=== PATIENT | female | born 1990 | race Hispanic/Latino ===

== ENCOUNTER 2016-12-09 18:32 | Emergency (ER) | payer SELFPAY ==
[2016-12-09 18:32] VITALS: BMI 29.8
[2016-12-09 19:31] VITALS: BP 119/77; PULSE 83; RESP 16; TEMP 98; O2SAT 98
--- NOTE | 2016-12-09 19:52 | C.PDOC ---
History Of Present Illness 26 y/o female presents to ED for evaluation of thumb laceration sustained at home with slicer [employer]. Patient denies deformity, sensory or vascular deficits, weakness, numbness or any other complaints at this time. Tetanus vaccines UTD Time Seen by Provider: 12/09/16 19:34 Chief Complaint (Nursing): Abnormal Skin Integrity History Per: Patient History/Exam Limitations: no limitations Onset/Duration Of Symptoms: Hrs Current Symptoms Are (Timing): Still Present Quality Of Symptoms: Painful Past Medical History Reviewed: Historical Data, Nursing Documentation, Vital Signs Vital Signs: Last Vital Signs Temp 98 F 12/09/16 19:29 Pulse 83 12/09/16 19:29 Resp 16 12/09/16 19:29 BP 119/77 12/09/16 19:29 Pulse Ox 98 12/09/16 20:05 Surgical History: Cholecystectomy - [facility] Procedures EXTRACTION OF POC, LOW CERVICAL, OPEN APPROACH (09/18/15) Family History: States: No Known Family Hx - Social History Hx Tobacco Use: No Hx Alcohol Use: No Hx Substance Use: No - Immunization History Hx Tetanus Toxoid Vaccination: Yes Hx Influenza Vaccination: No Hx Pneumococcal Vaccination: No Review Of Systems Except As Marked, All Systems Reviewed And Found Negative. Constitutional: Negative for: Fever, Chills Musculoskeletal: Positive for: Hand Pain Skin: Negative for: Rash Neurological: Negative for: Weakness, Numbness Physical Exam - Physical Exam Appears: Well, Non-toxic, No Acute Distress Skin: Normal Color, Warm, Dry, No Rash Extremity: Normal ROM, Capillary Refill (less than 2sec to Right thumb), No Deformity, No Swelling, Other (1cm superificial laceration to tip of Right thumb , no wound bleeding. no wound FB. FAROM, no neurovascular deficits.) Neurological/Psych: Oriented x3, Normal Speech, Normal Motor, Normal Sensation, Normal Reflexes ED Course And Treatment O2 Sat by Pulse Oximetry: 98 Progress Note: On re-eval, pt is afebrile, hemodynamicaly stable. non-toxic. Right thumb: laceration epaired w/skin adhesive. FAROM, no neurovascular deficits. Pt advised on wound care. tetanus is UTD. Pt ref. to f/u with PMD in 2-3 days for re-eavl. return ifany new changes. Laceration - Laceration Repair Right thumb Wound Length (In cm): 1cm Description Of Wound: Linear Wound Examination: Irrigated With Saline, No FB With Wound Exploration, No Tendon Injury With Wound Exploration Wound Closure: Steri Strips, Skin Glue Wound Complexity: Simple Disposition Counseled Patient/Family Regarding: Diagnosis, Need For Followup - Disposition Referrals: [facility] [Outside] Disposition: HOME/ ROUTINE Disposition Time: 19:55 Condition: STABLE Additional Instructions: Keep wound clean, dry for 2-3 days Light duty to injured finger Follow up with PMD in 2 days for re-evaluation as need. return to Ed if any new changes. Instructions: Finger Laceration (ED), Skin Adhesive Care (ED) Forms: [employer] (Citizen Of [place]) - Clinical Impression Clinical Impression: Laceration
== END 2016-12-09 20:24 | disposition home or self-care (01) ==
LOC: C.ER 18:32
DX: S61.011A Laceration without foreign body of right thumb without damage to nail, initial encounter (principal); W26.0XXA Contact with knife, initial encounter; Y93.G1 Activity, food preparation and clean up; Y92.000 Kitchen of unspecified non-institutional (private) residence as the place of occurrence of the external cause

== ENCOUNTER 2017-10-04 10:01 | Emergency (ER) | payer MEDICAID, OTHER ==
[2017-10-04 10:01] VITALS: BMI 29.8
[2017-10-04 10:23] VITALS: RESP 18; TEMP 98.8; O2SAT 98
--- NOTE | 2017-10-04 10:49 | C.PDOC ---
History Of Present Illness Patient is a 27 y/o female presenting to the ER for an evaluation of her left foot status post twisting her ankle jumping on the trampoline around 9pm last night. Patient stated she woke up with more pain this morning. She denies any numbness, tingling, loss of consciousness, or other injuries. Time Seen by Provider: 10/04/17 10:32 Chief Complaint (Nursing): Lower Extremity Problem/Injury History Per: Patient History/Exam Limitations: no limitations Onset/Duration Of Symptoms: Hrs Current Symptoms Are (Timing): Still Present - Ankle/Foot Description Of Injury: Twisted Past Medical History Reviewed: Historical Data, Nursing Documentation, Vital Signs Vital Signs: Last Vital Signs Temp 98.8 F 10/04/17 10:22 Pulse 85 10/04/17 12:20 Resp 18 10/04/17 12:20 BP 106/71 10/04/17 12:20 Pulse Ox 98 10/04/17 12:28 - Medical History PMH: Gall Bladder Disease Surgical History: Cholecystectomy - [facility] Procedures EXTRACTION OF POC, LOW CERVICAL, OPEN APPROACH (09/18/15) Family History: States: No Known Family Hx - Social History Hx Tobacco Use: No Hx Alcohol Use: No Hx Substance Use: No - Immunization History Hx Tetanus Toxoid Vaccination: Yes Hx Influenza Vaccination: No Hx Pneumococcal Vaccination: No Review Of Systems Except As Marked, All Systems Reviewed And Found Negative. Musculoskeletal: Positive for: Other (Ankle pain ) Neurological: Negative for: Weakness, Numbness Physical Exam - Physical Exam Appears: Non-toxic, No Acute Distress Skin: Normal Color, Warm, Dry Head: Atraumatic, Normacephalic Extremity: No Normal ROM (left foot ), Tenderness (Tenderness to medial and lateral malleolus of left foot ) Pulses: Left Dorsalis Pedis: Normal Neurological/Psych: Oriented x3 ED Course And Treatment O2 Sat by Pulse Oximetry: 98 (RA) Pulse Ox Interpretation: Normal - Other Rad Left ankle X-Ray: Interpreted by Me Interpretation: No acute fx/dislocation noted Medical Decision Making Medical Decision Making: Orders: Tylenol 975mg PO XR left ankle XR of left ankle shows no fractures or dislocations. Ankle brace was applied by Patient Program Technician. On reassessment, patient is resting comfortably, and is in no acute distress. Patient is ready and stable for discharge. Patient was instructed to follow up with physician/clinic in 1-2 days for further evaluation. Disposition - Disposition Disposition: HOME/ ROUTINE Disposition Time: 12:35 Condition: GOOD Additional Instructions: DELIA JACKSON, thank you for letting us take care of you today. Your provider was Audrey Wyman MD and you were treated for ANKLE PAIN. The emergency medical care you received today was directed at your acute symptoms. If you were prescribed any medication, please fill it and take as directed. It may take several days for your symptoms to resolve. Return to the Emergency Department if your symptoms worsen, do not improve, or if you have any other problems. Please contact your doctor or call one of the physicians/clinics you have been referred to that are listed on the Patient Visit Information form that is included in your discharge packet. Bring any paperwork you were given at discharge with you along with any medications you are taking to your follow up visit. Our treatment cannot replace ongoing medical care by a primary care provider outside of the emergency department. Thank you for allowing the [facility] team to be part of your care today. If you had an X-Ray or CT scan: A Radiologist will review the ED reading if any change in treatment is needed we will contact you. If you had a blood, urine, or wound culture: It will take several days for the results, if any change in treatment is needed we will contact you. If you had an STI test: It will take 48 hours for the results. Please call after 1 week if you have not heard back. Instructions: Ankle Sprain (DC) Forms: [employer] (Lao) - Clinical Impression Clinical Impression: Left ankle sprain - Scribe Statement The provider has reviewed the documentation as recorded by the German Melendez Provider Attestation: All medical record entries made by the Juaniibpeggy were at my direction and personally dictated by me. I have reviewed the chart and agree that the record accurately reflects my personal performance of the history, physical exam, medical decision making, and the department course for this patient. I have also personally directed, reviewed, and agree with the discharge instructions and disposition.
[2017-10-04 12:22] VITALS: BP 106/71; PULSE 85
--- NOTE | 2017-10-04 12:35 | RAD ---
PROCEDURE: Left Ankle Radiographs. HISTORY: ankle injury COMPARISON: None FINDINGS: BONES: No acute fracture. There is a multilocular lucent lesion of the distal tibial diaphysis. It is eccentric and surrounded by wide zone of sclerosis. There is possible endosteal scalloping. Etiology uncertain. Consider osteomyelitis, eosinophilic granuloma. Consider further evaluation with magnetic resonance imaging. No other lytic or blastic osseous lesion. JOINTS: Normal. No osteoarthritis. Ankle mortise maintained. Talar dome intact SOFT TISSUES: Normal. OTHER FINDINGS: None. IMPRESSION: No acute fracture. Incidental ill-defined lucent lesion of the tibial diaphysis. See above. Consider further evaluation with magnetic resonance imaging.
== END 2017-10-04 12:21 | disposition home or self-care (01) ==
LOC: C.ER 10:01
DX: S93.402A Sprain of unspecified ligament of left ankle, initial encounter (principal); X50.9XXA Other and unspecified overexertion or strenuous movements or postures, initial encounter; Y93.44 Activity, trampolining

== ENCOUNTER 2018-02-08 18:03 | Emergency (ER) | payer OTHER ==
[2018-02-08 18:20] VITALS: BMI 25.8
[2018-02-08 19:05] LABS: BASO % 0.5 % (0.0-2.0); EOS # 0.1 K/uL (0.0-0.7); EOS % 1.1 % (0.0-4.0); LYMPH # 2.1 K/uL (1.0-4.3); LYMPH % 21.9 % (20.0-40.0); MEAN CORPUSCULAR HEMOGLOBIN 30.6 pg (27.0-31.0); MEAN CORPUSCULAR HGB CONC 33.8 g/dL (33.0-37.0); MEAN PLATELET VOLUME 7.9 fL (7.2-11.7); MONO # 0.8 K/uL (0.0-0.8); MONO % 8.7 % (0.0-10.0); NEUT # 6.4 K/uL (1.8-7.0); NEUT % 67.8 % (50.0-75.0); NRBC % 0.1 % (0.0-2.0); RBC 4.63 Mil/uL (3.80-5.20); RED CELL DISTRIBUTION WIDTH 12.6 % (11.5-14.5); WHITE BLOOD COUNT 9.4 K/uL (4.8-10.8)
[2018-02-08 19:06] LABS: HEMOGLOBIN 14.2 g/dL (11.0-16.0); MEAN CELL VOLUME 90.4 fL (81.0-99.0)
[2018-02-08 19:19] LABS: ACETAMINOPHEN < 10.0 ug/mL (10.0-30.0); SALICYLATE < 1.0 mg/dL 1
[2018-02-08 19:21] LABS: ALB/GLOB RATIO 1.7 (1.0-2.1); ALBUMIN 4.6 g/dL (3.5-5.0); ALT/SGPT 39 U/L (9-52); AST/SGOT 52 U/L (14-36); BLOOD UREA NITROGEN 18 mg/dL (7-17); CALCIUM 9.7 mg/dl (8.6-10.4); GFR NON-AFRICAN AMERICAN > 60
[2018-02-08 20:17] LABS: URINE BILIRUBIN NEGATIVE (NEGATIVE); URINE BLOOD 1+ (NEGATIVE); URINE CLARITY CLEAR (Clear); URINE COLOR YELLOW (YELLOW); URINE GLUCOSE (UA) NORMAL (Normal); URINE PROTEIN NEGATIVE (NEGATIVE); URINE UROBILINOGEN NORMAL mg/dL (0.2-1.0)
[2018-02-08 20:18] LABS: SQUAMOUS EPITHIAL < 1 /hpf (0-5); URINE LEUKOCYTE ESTERASE 1+ Leu/uL (Negative)
[2018-02-08 20:20] LABS: BARBITURATES, UR NEGATIVE (NEGATIVE); BENZODIAZEPINES, UR NEGATIVE (NEGATIVE); OPIATES, UR NEGATIVE (NEGATIVE); PHENCYCLIDINE, UR NEGATIVE (NEGATIVE)
--- NOTE | 2018-02-08 21:08 | C.PDOC ---
History Of Present Illness 27 y/o female brought in by EMS and police for bizarre intoxicated behavior at her home. As per police, they were called to her house and found patient exhibiting bizarre behavior, running through the streets, stating she wanted cars to run her over. Of note, patient was seen here in the ED last night, although registered as a Kathryn Delong, seen for similar complaint including bizarre behavior, running through the streets. U-tox was significant only for mildly elevated alcohol, drug screen was negative. As per EMS this is the patients 3rd ED visit in 24 hours for bizarre, intoxicated behavior including once yesterday at [facility], then @ [facility] overnight. Per EMS and [facility] there are 4 children age 8 and under @ pt's home. On arrival, patient appears agitated with (+) AOB. Patient arrives in handcuffs, using verbal threats/assaults and foul language. Patient unable to be re-directed. Put in 4 point restraints by security. Ativan and Geodon IM given. <Fransisco Martinez - Last Filed: 02/08/18 23:33> History Per: Patient History/Exam Limitations: intoxication Onset/Duration Of Symptoms: Days Current Symptoms Are (Timing): Still Present Modifying Factor(s): Alcohol Additional History Per: EMS, Prior Records <Fransisco Martinez - Last Filed: 02/08/18 23:33> <Vinnie Cleary - Last Filed: 02/09/18 06:37> <Yue Berger - Last Filed: 02/09/18 10:41> Time Seen by Provider: 02/08/18 18:06 Chief Complaint (Nursing): Psychiatric Evaluation Past Medical History Reviewed: Historical Data, Nursing Documentation, Vital Signs Vital Signs: Last Vital Signs Temp Pulse 89 02/08/18 20:39 Resp 18 02/08/18 20:39 BP 90/50 L 02/08/18 20:39 Pulse Ox 97 02/08/18 20:39 - Medical History PMH: Bipolar Disorder, Depression, Gall Bladder Disease Surgical History: Cholecystectomy, - [facility] Procedures EXTRACTION OF POC, LOW CERVICAL, OPEN APPROACH (09/18/15) Family History: States: No Known Family Hx - Social History Hx Tobacco Use: No Hx Alcohol Use: No Hx Substance Use: No - Immunization History Hx Tetanus Toxoid Vaccination: Yes Hx Influenza Vaccination: No Hx Pneumococcal Vaccination: No <Fransisco Martinez - Last Filed: 02/08/18 23:33> Vital Signs: Last Vital Signs Temp Pulse 92 H 02/08/18 21:44 Resp 20 02/08/18 21:44 BP 92/53 L 02/08/18 21:44 Pulse Ox 97 02/08/18 23:33 - [facility] Procedures EXTRACTION OF POC, LOW CERVICAL, OPEN APPROACH (09/18/15) <Vinnie Cleary - Last Filed: 02/09/18 06:37> Vital Signs: Last Vital Signs Temp 99 F 02/09/18 06:43 Pulse 88 02/09/18 06:43 Resp 20 02/09/18 06:43 BP 121/72 02/09/18 06:43 Pulse Ox 98 02/09/18 06:43 - [facility] Procedures EXTRACTION OF POC, LOW CERVICAL, OPEN APPROACH (09/18/15) <Yue Berger - Last Filed: 02/09/18 10:41> Review Of Systems Review Of Systems: ROS cannot be obtained secondary to pt's inabilty to answer questions. <Fransisco Martinez - Last Filed: 02/08/18 23:33> Physical Exam - Physical Exam Appears: Non-toxic, Agitated, Other (Spewing verbal threats/assaults at staff, uncooperative) Skin: Normal Color, Warm, Dry Head: Atraumatic, Normacephalic Eye(s): bilateral: Normal Inspection, PERRL, EOMI Nose: Normal Oral Mucosa: Moist Neck: Normal ROM Chest: Symmetrical Cardiovascular: Rhythm Regular Respiratory: Normal Breath Sounds, No Accessory Muscle Use Gastrointestinal/Abdominal: Soft, No Tenderness, No Distention Extremity: Bilateral: Atraumatic, Normal Color And Temperature, Normal ROM (x4) Neurological/Psych: Normal Speech, Other (Awake, alert, yelling at staff, not answering appropriately to questions) <Fransisco Martinez - Last Filed: 02/08/18 23:33> ED Course And Treatment - Laboratory Results Result Diagrams: 02/08/18 19:00 02/08/18 19:00 Lab Interpretation: Abnormal (ETOH 173 W approx 1830 hours, tox neg.) Urine POC: Negative ECG: Interpreted By Me ECG Rhythm: Sinus Rhythm Rate From EC O2 Sat by Pulse Oximetry: 97 (RA) Pulse Ox Interpretation: Normal <Fransisco Martinez - Last Filed: 02/08/18 23:33> - Laboratory Results Result Diagrams: 02/08/18 19:00 02/08/18 19:00 ECG: Interpreted By Me, Viewed By Me ECG Rhythm: Sinus Rhythm, Nonspecific Changes Pulse Ox Interpretation: Normal - Radiology CXR: Interpreted by Me, Viewed By Me CXR Interpretation: No: Infiltrates, Fracture, Pnemothorax <Vinnie Cleary - Last Filed: 02/09/18 06:37> - Laboratory Results Result Diagrams: 02/08/18 19:00 02/08/18 19:00 <Yue Berger - Last Filed: 02/09/18 10:41> Medical Decision Making Medical Decision Making: Impression: 27y/o F with bizarre behavior Initial Plan: --EKG --CMP --Magnesium --Phosphorous --Acetaminophen --Salicylate --Alcohol serum --UDS --CBC --Urinalysis --Placed on 1:1 observation in the ED Labs reviewed. Patient pending eval from high worker. per @ bedside, pt currently with psych dx and PO meds but both unknown. He denies he was here yesterday during this pt's ED eval, but per other ED MD and nursing staff slept @ bedside overnight and took pt home this morning. Unclear who is caring for the couple's children at this time. 3 ED visits for EDP in < 24 hours, consider acute psychosis, substance abuse. DYFS contacted as 4 children under 8 y/o exposed to this behavior. Consider involuntary psych adm PRN 2200: Medically Cleared for Crisis, Will eval pt after 1999: signed over to overnight MD, pending Crisis eval and Dispo <Fransisco Martinez - Last Filed: 02/08/18 23:33> Disposition - Disposition Disposition Time: 00:00 <Fransisco Martinez - Last Filed: 02/08/18 23:33> <Vinnie Cleary - Last Filed: 02/09/18 06:37> - Disposition Disposition Time: 10:45 <Yue Berger - Last Filed: 02/09/18 10:41> - Disposition Disposition: HOME/ ROUTINE Condition: STABLE Forms: [facility] (Azeri) - Clinical Impression Clinical Impression: Alcohol intoxication, Psychosis - Scribe Statement The provider has reviewed the documentation as recorded by the Scribe (Kenisha Enrique) Provider Attestation: All medical record entries made by the Scribe were at my direction and personally dictated by me. I have reviewed the chart and agree that the record accurately reflects my personal performance of the history, physical exam, medical decision making, and the department course for this patient. I have also personally directed, reviewed, and agree with the discharge instructions and disposition. <Fransisco Martinez - Last Filed: 02/08/18 23:33> Physician Patient Turnover Patient Signed Over To: Vinnie Cleary Handoff Comments: pending Crisis Eval and dispo <Fransisco Martinez - Last Filed: 02/08/18 23:33> Patient Signed Over To: Yue Berger Handoff Comments: Pending [facility] screeners and dispostion <Vinnie Cleary - Last Filed: 02/09/18 06:37> Addendum Addendum: 02/09/18 09:03 Patient resting comfortably, pending face to face eval by Dr. Ríos in approx 1 hour. 02/09/18 10:[address] Ríos at bedside - she has been cleared for discharge from psychiatric standpoint. Family () is at bedside and comfortable taking her home. <Yue Berger - Last Filed: 02/09/18 10:41>
[2018-02-08 21:56] VITALS: RESP 20
[2018-02-09 07:13] VITALS: BP 121/72; PULSE 88; O2SAT 98
--- NOTE | 2018-02-09 08:45 | RAD ---
Date of service: 02/09/2018 HISTORY: medical clearance for screening COMPARISON: 02/09/2018 FINDINGS: LUNGS: No active pulmonary disease. Bibasilar breast and nipple shadows. PLEURA: No significant pleural effusion identified, no pneumothorax apparent. CARDIOVASCULAR: No atherosclerotic calcification present Normal. OSSEOUS STRUCTURES: No significant abnormalities. VISUALIZED UPPER ABDOMEN: Normal. OTHER FINDINGS: None. IMPRESSION: No active disease.
[2018-02-09 10:51] VITALS: TEMP 99.2
[2018-02-09] MEDS ORDERED: Potassium Chloride 20 mEq ER Tab PO STA (10:59)
[2018-02-09] MEDS ORDERED: Potassium Chloride 20 mEq ER Tab PO ONE (11:06)
--- NOTE | 2018-02-09 11:16 | PCM.PSYCH ---
Initial Psychiatric Evaluation - Initial Psychiatric Evaluation Type of Admission: Voluntary Legal Status: Capacity Chief Complaint (in patient's own words): I m feeling better.' History of Present Illness and Precipitating Events: Pt is a 27yr old CF, who is in an interracial marriage, presented to the ED, in an intoxicated and disorganized state. As per the ED report, pt was at [facility] for reasons unknown and departed AMA. It was also reported that she has been drinking for the past two days. Today she came to the hospital with a bal of 173. Her said that she usually doesn't drink at all. Pt said that the last tiime that she had a drink previous to this was (4) months ago. As per the collateral, she was brought to the hospital by the police, acting strange and bizarre. She had to be medicated and restrained on both occassions, because she was spitting, bitting, fighting and cursing. It was reported that she was totally out of control. It was also reported, that yesterday, she had been running through the streets as if she wanted to be hit by a car. Pt said she did this because she angry and intoxicated. She also said that she has made suicide attempts in the past. Patient reports that her son was just diagnosed with a kidney problem. She became very depressed and started drinking. As per him she has no idea what happened afterwards, as she was intoxicated. As per the collateral's, reports that she has never felt suicidal or homicidal. He denies any auditory or visual hallucinations or any patient's paranoid behavior. He denies any past history of any inpatient psychiatric hospitalizations, and denies any history of follow-up with any psychiatrist. Past Psychiatric History - Past Psychiatric History Previous Treatment History: None Pertinent Medical Hx (Current Medical&Sleep Prob, Allergies): Allergies Allergy/AdvReac Type Severity Reaction Status Date / Time No Known Allergies Allergy Verified 02/08/18 18:13 Unobtainable 02/08/18 Review of Systems - Review of Systems All systems: reviewed and no additional remarkable complaints except - Psychiatric Psychiatric: Anxiety, Irritability Mental Status Examination - Personal Presentation Personal Presentation: Looks stated age - Affect Affect: Broad, Other (Labile) - Motor Activity Motor Activity: Calm - Reliability in Providing Information Reliability in Providing Information: Fair - Speech Speech: Organized - Mood Mood: Anxious - Formal Thought Process Formal Thought Process: No Impairment - Obsessions/Compulsions Obsessions: No Compulsions: No - Cognitive Functions Orientation: Person, Place, Situation, Time Sensorium: Alert Attention/Concentration: Attentive Abstract Thinking: [place] Estimate of Intelligence: Below average Judgement: Imparied, as evidence by: Poor judgement, Imparied, as evidence by: Lack of insight into illness - Risk Risk: Diminished functioning - Strength & Assets Inventory Strength & Assets Inventory: Family support DSM 5 DX - DSM 5 DSM 5 Diagnosis: Alcohol intoxication Rule out MDD - Recommended/Plan of Treatment Treatment Recommendations and Plan of Treatment: Patient psychiatrically stable and clear for discharge - Smoking Cessation Smoking Cessation Initiated: No
--- NOTE | 2018-02-10 19:40 | CARD ---
APPROVED REPORT Date of service: 02/08/2018 EKG Measurement Heart [id number] <Conclusion> Normal sinus rhythm Normal ECG
== END 2018-02-09 11:30 | disposition home or self-care (01) ==
LOC: C.ER 18:03
DX: F29 Unspecified psychosis not due to a substance or known physiological condition (principal); F10.129 Alcohol abuse with intoxication, unspecified; Y90.6 Blood alcohol level of 120-199 mg/100 ml; F31.9 Bipolar disorder, unspecified
CPT/HCPCS: 71045; 80053; 80320; 80324; 80329; 80345; 80346; 80349; 80353; 80358; 80361; 81001; 83735; 83992; 84100; 85025; 93005; 96372; 99285; J2060; J3486

== ENCOUNTER 2018-04-28 09:09 | Emergency (ER) | payer MEDICAID, OTHER ==
[2018-04-28 09:09] VITALS: BMI 25.8
[2018-04-28 09:24] VITALS: BP 129/67; PULSE 86; RESP 20; TEMP 98; O2SAT 100
[2018-04-28] MEDS ORDERED: Acetaminophen-Codeine 300/30 mg Tab PO STA (09:59)
[2018-04-28] MEDS ORDERED: Acetaminophen-Codeine 300/30 mg Tab PO ONE (10:08)
--- NOTE | 2018-04-28 10:23 | C.PDOC ---
History Of Present Illness 27 y/o female presents to the ED with 4 month history of toothache, worse since last night. Patient has not seen a dentist yet. She denies any fever or chills. Has not taken any pain medication at home. No discharge from the site or facial swelling. Time Seen by Provider: 04/28/18 09:52 Chief Complaint (Nursing): Dental Pain History Per: Patient History/Exam Limitations: no limitations Onset/Duration Of Symptoms: Days Current Symptoms Are (Timing): Still Present Past Medical History Reviewed: Historical Data, Nursing Documentation, Vital Signs Vital Signs: Last Vital Signs Temp 98 F 04/28/18 09:15 Pulse 86 04/28/18 09:15 Resp 20 04/28/18 09:15 BP 129/67 04/28/18 09:15 Pulse Ox 100 04/28/18 09:15 - Medical History PMH: Bipolar Disorder, Depression, Gall Bladder Disease Denies: Diabetes, Hepatitis, HIV, HTN, Seizures, Sexually Transmitted Disease Surgical History: Cholecystectomy, - [facility] Procedures EXTRACTION OF POC, LOW CERVICAL, OPEN APPROACH (09/18/15) Family History: States: Unknown Family Hx - Social History Hx Tobacco Use: No Hx Alcohol Use: No Hx Substance Use: No - Immunization History Hx Tetanus Toxoid Vaccination: Yes Hx Influenza Vaccination: No Hx Pneumococcal Vaccination: No Review Of Systems Except As Marked, All Systems Reviewed And Found Negative. Constitutional: Negative for: Fever, Chills ENT: Positive for: Other (Toothache) Physical Exam - Physical Exam Appears: Non-toxic, No Acute Distress Skin: Warm, Dry Head: Atraumatic, Normacephalic Eye(s): bilateral: Normal Inspection Oral Mucosa: Moist Teeth: Caries (Dental sapphire at tooth #29), No Loose, No Avulsed Gingiva: Normal Appearing, No Abscess Throat: Normal, No Erythema Neck: Normal ROM, Supple Neurological/Psych: Oriented x3, Normal Speech ED Course And Treatment O2 Sat by Pulse Oximetry: 100 (RA) Pulse Ox Interpretation: Normal Medical Decision Making Medical Decision Making: Impression: Toothache Plan: Patient given list of dental clinics. Will discharge patient home with pain medication and amoxicillin. Of note, patient accompanied by mother, who is dissatisfied with service due to lack of dentist on site. Disposition Counseled Patient/Family Regarding: Diagnosis, Need For Followup, Rx Given - Disposition Disposition: HOME/ ROUTINE Disposition Time: 10:20 Condition: STABLE Additional Instructions: follow up with dentist today call to make an appointment take medications as directed return to ER if symptoms worsens or progress Prescriptions: Acetaminophen/Codeine [Tylenol/Codeine 300 MG/30 MG] 1 tab PO Q6H PRN #6 tab PRN Reason: Pain, Severe (8-10) Amoxicillin [Amoxil 500 mg Cap] 875 mg PO BID 10 Days #20 cap Naproxen [Naprosyn] 500 mg PO BID PRN #16 tablet PRN Reason: Pain, Moderate (4-7) Instructions: Dental Pain (DC) Forms: [facility] (Ukrainian), General Discharge Instructions - Clinical Impression Clinical Impression: Dental caries - Scribe Statement The provider has reviewed the documentation as recorded by the German Enrique Provider Attestation: All medical record entries made by the German were at my direction and personally dictated by me. I have reviewed the chart and agree that the record accurately reflects my personal performance of the history, physical exam, medical decision making, and the department course for this patient. I have also personally directed, reviewed, and agree with the discharge instructions and disposition.
== END 2018-04-28 10:34 | disposition home or self-care (01) ==
LOC: C.ER 09:09
DX: K02.9 Dental caries, unspecified (principal)

== ENCOUNTER 2018-06-25 09:12 | Emergency (ER) | payer MEDICAID | END 2018-06-25 13:12 | disposition home or self-care (01) | LOC: C.ER 09:12 ==